=== PATIENT | male | born 2000 | race Caucasian/White ===

== ENCOUNTER 2019-12-15 02:35 | Emergency (ER) | payer OTHER ==
[2019-12-15] MEDS ORDERED: Lidocaine 1% (PF) 30 ML VIAL ONE (02:49)
[2019-12-15] MEDS ORDERED: Acetaminophen 500 MG TAB ONE (04:02)
--- NOTE | 2019-12-15 07:29 | RAD ---
Exam:3 views right ankle HISTORY: Trauma. Pain. COMPARISON: None FINDINGS: Mildly displaced distal fibular fracture. There is widening of the medial joint space sugge sting ligamentous injury. There is soft tissue swelling. IMPRESSION: 1. Fracture 2. Probable medial ligamentous injury. 3. Posttraumatic soft tissue swelling.
== END 2019-12-15 04:47 | disposition home or self-care (01) ==
LOC: ERS 02:35
DX: S82.831A Other fracture of upper and lower end of right fibula, initial encounter for closed fracture (principal); S01.511A Laceration without foreign body of lip, initial encounter; W50.0XXA Accidental hit or strike by another person, initial encounter
CPT/HCPCS: 12052; 27786; J2001

== ENCOUNTER 2019-12-22 14:01 | Emergency (ER) | payer OTHER | END 2019-12-22 14:35 | disposition home or self-care (01) | LOC: ERS 14:01 | DX: S01.511D Laceration without foreign body of lip, subsequent encounter (principal) | CPT/HCPCS: 99282 ==